=== PATIENT | female | born 1980 | race Caucasian/White ===

== ENCOUNTER 2019-05-28 08:43 | Inpatient (IN) | payer MEDICAID ==
[~2019-05-28 08:43] MED LIST: SUCCINYLCHOLINE CHLORIDE INJ 200 MG/10 ML VIAL ONE
[2019-05-28] MEDS ORDERED: OXYCODONE-ACETAMINOPHEN 5-325 MG TABLET PO ONE (09:53)
--- NOTE | 2019-05-28 09:56 | ER Document Report ---
ED Medical Screen (RME) - General Chief Complaint: Abscess Stated Complaint: BREAST PAIN Time Seen by Provider: 05/28/19 09:49 Mode of Arrival: Ambulatory Information source: Patient Notes: This 39-year-old female presents today with complaints of left breast abscess. Reports for the past week. Reports she has a history of a breast abscess. She went to see her provider on Tuesday who put her on clindamycin. She reports it is worse now red hot more swollen. Reports fever on and off. Patient also reports she broke up with her boyfriend 1 year ago and is asking about AIDS testing. Denies symptoms. Report that she figured since I was drawing blood I could check on everything. I encouraged her to follow-up with her primary care or health department. I have greeted and performed a rapid initial assessment of this patient. A comprehensive ED assessment and evaluation of the patient, analysis of test results and completion of the medical decision making process will be conducted by additional ED providers. Dictation of this chart was performed using voice recognition software; therefore, there may be some unintended grammatical errors. TRAVEL OUTSIDE OF THE [place] IN LAST 30 DAYS: No - Related Data Allergies/Adverse Reactions: sulfamethoxazole [From Septra] Allergy (Verified 05/28/19 08:44) trimethoprim [From Septra] Allergy (Verified 05/28/19 08:44) Physical Exam - Vital signs Vitals: Temp Pulse Resp BP Pulse Ox 98.3 F 86 16 115/62 96 05/28/19 08:48 05/28/19 08:48 05/28/19 08:48 05/28/19 08:48 05/28/19 08:48 Course - Vital Signs Vital signs: Temp Pulse Resp BP Pulse Ox 98.3 F 86 16 115/62 96 05/28/19 08:48 05/28/19 08:48 05/28/19 08:48 05/28/19 08:48 05/28/19 08:48
[2019-05-28 10:14] LABS: ABSOLUTE BASOPHILS # (AUTO) 0.1 10^3/uL (0.0-0.2); ABSOLUTE EOSINOPHILS # (AUTO) 0.4 10^3/uL (0.0-0.6); ABSOLUTE LYMPHOCYTES (AUTO) 2.2 10^3/uL (0.5-4.7); ABSOLUTE MONOCYTES (AUTO) 1.9 10^3/uL (0.1-1.4); ABSOLUTE NEUT (AUTO) 10.8 10^3/uL (1.7-8.2); EOSINOPHILS % (AUTO) 2.5 % (0-6); HEMATOCRIT 43.7 % (36.0-47.0); HEMOGLOBIN 14.7 g/dL (12.0-15.5); MEAN CORPUSCULAR HEMOGLOBIN 32.3 pg (27.0-33.4); MEAN CORPUSCULAR HGB CONC 33.7 g/dL (32.0-36.0); MEAN CORPUSCULAR VOLUME 96 fl (80-97); MONOCYTES % (AUTO) 12.4 % (3-13); PLATELET COUNT 193 10^3/uL (150-450); RED BLOOD COUNT 4.56 10^6/uL (3.72-5.28); RED CELL DISTRIBUTION WIDTH 13.2 % (11.5-14.0); SEGMENTED NEUTROPHILS % (AUTO) 70.1 % (42-78); TOTAL CELLS COUNTED % (AUTO) 100 %; WHITE BLOOD COUNT 15.4 10^3/uL (4.0-10.5)
[2019-05-28 10:15] LABS: APPEARANCE,URINE CLEAR; BILIRUBIN,URINE NEGATIVE (NEGATIVE); COLOR,URINE YELLOW; GLUCOSE, URINE NEGATIVE (NEGATIVE); KETONES,URINE NEGATIVE (NEGATIVE); LEUKOCYTE ESTERASE,URINE NEGATIVE (NEGATIVE); NITRITE,URINE NEGATIVE (NEGATIVE); PROTEIN,URINE NEGATIVE (NEGATIVE); URINE SPECIFIC GRAVITY 1.012; UROBILINOGEN,URINE NEGATIVE mg/dL (<2.0)
[2019-05-28 10:32] LABS: ALANINE AMINOTRANSFERASE 78 U/L (9-52); ALBUMIN 3.7 g/dL (3.5-5.0); ALKALINE PHOSPHATASE 194 U/L (38-126); ANION GAP 8 (5-19); ASPARTATE AMINO TRANSFERASE 45 U/L (14-36); BILIRUBIN,DIRECT 0.3 mg/dL (0.0-0.4); BILIRUBIN,TOTAL 0.3 mg/dL (0.2-1.3); BLOOD UREA NITROGEN 8 mg/dL (7-20); CALCIUM 9.2 mg/dL (8.4-10.2); CARBON DIOXIDE 27 mmol/L (22-30); CHLORIDE 102 mmol/L (98-107); GLUCOSE 100 mg/dL (75-110); POTASSIUM 4.4 mmol/L (3.6-5.0); SODIUM 137.1 mmol/L (137-145); TOTAL PROTEIN 7.1 g/dL (6.3-8.2)
--- NOTE | 2019-05-28 11:30 | RADIOLOGY REPORT (SQ) ---
EXAM DESCRIPTION: U/S BREAST UNILATERAL LIMITED COMPLETED DATE/TIME: 05/28/2019 11:08 am REASON FOR STUDY: LEFT BREAST ABSCESS COMPARISON: None TECHNIQUE: Static and Realtime grayscale interrogation of focal area(s) of concern in the left breas t(s) acquired. Selected color doppler/spectral images saved to PACS. LIMITATIONS: None. FINDINGS: Targeted ultrasound examination of the left breast at the patient identified site of pain and palpable abnormality reveals a subcutaneous heterogeneous collection measuring 5.2 x 6.8 x 4.0 cm at 7 o'clock face, 4 cm from the nipple. IMPRESSION: Targeted ultrasound examination of the left breast at the patient identified site of edis n and palpable abnormality reveals a subcutaneous heterogeneous collection measuring 5.2 x 6.8 x 4.0 cm at 7 o'clock face, 4 cm from the nipple. Given stated clinical presentation this is most concerni ng for abscess. [place] galactocele, hematoma, or seroma are differential considerations and the prese nce of infection cannot be evaluated by ultrasound. BIRAD: 2 Benign findings.. RECOMMENDATION: RECOMMENDED FOLLOW-UP: Follow-up as clinically indicated. COMMENT: The [employer] ([employer]) has developed recommendations for screening MRI of the breasts in certain patient populations, to be used in conjunction with mammography. Breast MRI s urveillance may be appropriate for women with more than 20% lifetime risk of developing breast cancer as determined by genetic testing, significant family history of the disease, or history of mantle r adiation for Hodgkins Disease. ACR Practice Guidelines 2008. TECHNICAL DOCUMENTATION: FINDING NUMBER: (1) ASSESSMENT: (1) JOB ID: [id number] [employer]- All Rights Reserved Reading location - IP/workstation name: [email or web address]
--- NOTE | 2019-05-28 12:05 | ER Document Report ---
ED Skin Rash/Insect Bite/Abscs - General Chief Complaint: Abscess Stated Complaint: BREAST PAIN Time Seen by Provider: 05/28/19 09:49 Mode of Arrival: Ambulatory Information source: Patient Notes: 39-year-old female with the listed past medical history here for left breast pain, swelling, redness for the last 5 days. She was seen and evaluated at her PCPs and placed on clindamycin 300 mg 4 times daily for the last 3 days however she states her symptoms have worsened. She endorses compliance with medication. no drainage, bleeding, or itching. Her last po intake was 8 AM this morning. S he states the redness, swelling, and pain have become worse. She denies any nipple changes, inversion, or discharge. She denies any right breast complaints. No trauma or injury. She states she did have a fever of a T max 103 F at home a couple days ago. She is not a diabetic. No other recent antibiotics or steroids. No breast surgeries. She states she had a negative mammogram about 1 year ago when she had a similar less severe infection however that resolved with antibiotic's and did not require incision and drainage. She states this is much worse. Last menstrual period was a week ago. Denies iv drug use. She has had a tubal ligation. Denies IV drug use. No other complaints at this time. TRAVEL OUTSIDE OF THE [place] IN LAST 30 DAYS: No - Related Data Allergies/Adverse Reactions: sulfamethoxazole [From Septra] Allergy (Verified 05/28/19 08:44) trimethoprim [From Julra] Allergy (Verified 05/28/19 08:44) Past Medical History - General Information source: Patient Last Menstrual Period: one week ago - Social History Smoking Status: Current Every Day Smoker Frequency of alcohol use: unknown Drug Abuse: None Family History: Other - unknown Patient has suicidal ideation: No Patient has homicidal ideation: No Renal/ Medical History: Denies: Hx Peritoneal Dialysis Psychiatric Medical History: Reports: Hx Bipolar Disorder Past Surgical History: Reports: Hx Section - x2, Hx Oral Surgery Review of Systems - Review of Systems -: Yes All other systems reviewed and negative - unless mentioned in the hpi Physical Exam - Vital signs Vitals: Temp Pulse Resp BP Pulse Ox 98.3 F 86 16 115/62 96 05/28/19 08:48 05/28/19 08:48 05/28/19 08:48 05/28/19 08:48 05/28/19 08:48 Notes: >>>> PHYSICAL_EXAM: GENERAL_APPEARANCE: well_nourished, alert, cooperative, no_acute_distress, mild_obvious_discomfort. pleasant, obese, young white female, smiling, speaking in full sentences, in no sign of pain or resp distress, VITALS: reviewed, see vital signs table. HEAD: no_swelling\tenderness on the head. normocephalic. atraumatic. no hallman signs. no raccoons eyes. EYES: PERRL, EOMI, conjunctiva_clear. NOSE: no_nasal_discharge. MOUTH: (-)decreased moisture. THROAT: no_tonsilar_inflammation, no_airway_obstruction. no_lymphadenopathy NECK: supple, no_neck_tenderness, full rom. full strength. no meningeal signs. BACK: no_back_tenderness. CHEST_WALL: no_chest_tenderness unless otherwise noted. no overlying skin changes unless otherwise noted LUNGS: no_wheezing, ctab (-)accessory muscle use, good air exchange bilateral. HEART: normal_rate, normal_rhythm, no_murmur, BREAST: Right breast manual exam deferred however no grossly visible overlying skin changes. Left breast has diffuse erythema from the superior areola distally across the entire breast and near circumferential around the breast. The medial aspect is more indurated and has calor and in the lateral aspect a few centimeters from the areola border is the most tender to palpate. exam some what limited secondary to pts tenderness. no grossly palpable fluctuance. She has no axillary lymphadenopathy. There is no orange peeling of the skin. There is no nipple inversion, drainage, bleeding, or discharge. Patient consented to exam. Exam without incident. ABDOMEN: normal_BS, soft, no_abd_tenderness, (-)guarding, (-)rebound, no distension or peritoneal signs. no cva ttp EXTREMITIES: strength 5/5 in all_extremities, good pulses in all_extremities, no_swelling\tenderness in the extremities, no_edema. full rom. normal gait. good pulses. brisk cap refill. 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 neg parker sign NEURO: motor and sensation intact, cranial nerves 2-12 intact, cerebellar fxn intact SKIN: warm, dry, good_color, no_rash unless otherwise noted. MENTAL_STATUS: speech_clear, oriented_X_3, normal_affect, responds_appropriately to questions. Course - Re-evaluation Re-evalutation: 05/28/19 14:38 Patient here for left breast cellulitis/abscess that is dramatically worsening over the last day or 2. She has had fevers of 103 at home. She has been on clindamycin for 3 days and her symptoms are worsening. Her labs are notable for a white count of 15,000, slightly elevated LFTs. bcx x 2 and lactic pending. A triage breast ultrasound was done that showed a 5 cm collection that could represent an abscess but was otherwise negative per radiology and reviewed by myself. Case discussed with ED attending, Dr. Teresa, who advised to call on- call surgery for IV antibiotics and incision and drainage. I then spoke with the on-call surgeon, Dr. Flores, who advised to give the patient IV fluids, IV Ancef, and he would come down and evaluate the patient and take the patient to the OR. Patient was kept n.p.o. She has pain controlled. Nontoxic. Vital signs stable. Patient understand and agrees with plan. Care transferred to surgery in stable condition. Please refer to their note for further details of the visit. On reexam, pt improved with tx listed. remained stable. nontoxic. pain controlled. she was kept NPO. case discussed with ER Attending, Dr. Teresa, who directed and agrees with plan of care Documentation achieved through voice recording which my lead to some occasional accidental typographical errors. Extensive efforts have been made to proof read documentation to make sure these are the least as possible. Category Date Time Status Adult Intake and Output [RC] Q8 Care 05/28/19 13:34 Active Doctor [DOCTOR/NURSE COMMUNICATION] [RC] NOW Care 05/28/19 13:36 Active Patient Status-Admission .Routine Care 05/28/19 13:34 Active U/S BREAST UNILATERAL LIMITED [US] Stat Exams 05/28/19 09:53 Completed BLOOD CULTURE [MC] Stat Lab 05/28/19 11:43 Received BLOOD CULTURE [MC] Stat Lab 05/28/19 13:12 Uncollected CBC WITH DIFF [HEME] Stat Lab 05/28/19 10:05 Completed COMPREHENSIVE METABOLIC PANEL [CHEM] Stat Lab 05/28/19 10:05 Completed HCG QUALITATIVE, URINE [URIN] Stat Lab 05/28/19 12:54 Uncollected HCG-QUAL, SERUM [CHEM] Stat Lab 05/28/19 10:05 Completed LACTIC ACID SEPSIS [CHEM] Stat Lab 05/28/19 13:01 Ordered URINALYSIS [URIN] Stat Lab 05/28/19 10:05 Completed Acetaminophen [Ofirmev Inj/Pf 1000 mg/100 ml Sdv] Med 05/28/19 18:00 Active 1,000 mg IV Q6 Bupivacaine HCl/Pf [Sensorcaine-Mpf 0.25% Inj 30 ml Sdv Med 05/28/19 13:42 Discontinued ] 30 ml .ROUTE .STK-MED ONE Cefazolin 1 gm/D5w RTU [Ancef RTU 1 gm/D5w 50 ml Premix Med 05/28/19 14:00 Active Bag] 1 gm in 50 ml IV Q8 Lidocaine HCl/Pf [Xylocaine 0.5% Inj-Pf (5 mg/ml) 50 ml Med 05/28/19 13:42 Discontinued Sdv] 50 ml .ROUTE .STK-MED ONE Morphine Sulfate [Morphine 10 mg/ml Inj] Med 05/28/19 13:00 Discontinued 4 mg IV NOW ONE Normal Saline 1000 ml [NaCl 0.9% 1000 ml IV Soln] 1,000 Med 05/28/19 13:00 Discontinued ml IV BOLUS Ondansetron HCl/Pf [Zofran Inj/Pf 4 mg/2 ml Sdv] Med 05/28/19 13:00 Discontinued 4 mg IV NOW ONE Ondansetron HCl/Pf [Zofran Inj/Pf 4 mg/2 ml Sdv] Med 05/28/19 13:35 Active 4 mg IV Q4HP PRN Oxycodone HCl/Acetaminophen [Percocet 5-325 mg Tablet] Med 05/28/19 09:53 Discontinued 1 tab PO NOW ONE Ringers Solution,Lactated [Lactated Ringers 1000 ml IV Med 05/28/19 13:36 Active Soln] 1,000 ml IV CONTINUOUS Mechanical Prophylaxis .ROUTINE Oth 05/28/19 13:45 Ordered Pharmacological Prophylaxis .ROUTINE Oth 05/28/19 13:45 Ordered Resuscitation Status Routine Ot 05/28/19 13:34 Ordered Vital Signs [RC] Q4H Oth 05/28/19 13:34 Active Weight [RC] Q6AM Oth 05/28/19 13:34 Active 05/28/19 14:45 - Vital Signs Vital signs: Temp Pulse Resp BP Pulse Ox 98.3 F 86 16 115/62 96 05/28/19 08:48 05/28/19 08:48 05/28/19 08:48 05/28/19 08:48 05/28/19 08:48 - Laboratory Result Diagrams: 05/28/19 10:05 05/28/19 10:05 Laboratory results interpreted by me: 05/28/19 05/28/19 10:05 10:05 WBC 15.4 H Absolute Neutrophils 10.8 H Absolute Monocytes 1.9 H Creatinine 0.45 L AST 45 H ALT 78 H Alkaline Phosphatase 194 H 05/28/19 14:46 Labs- All tests 24 hr 05/28/19 05/28/19 05/28/19 10:05 10:05 10:05 WBC 15.4 H RBC 4.56 Hgb 14.7 Hct 43.7 MCV 96 MCH 32.3 MCHC 33.7 RDW 13.2 Plt Count 193 Seg Neutrophils % 70.1 Lymphocytes % 14.0 Monocytes % 12.4 Eosinophils % 2.5 Basophils % 1.0 Absolute Neutrophils 10.8 H Absolute Lymphocytes 2.2 Absolute Monocytes 1.9 H Absolute Eosinophils 0.4 Absolute Basophils 0.1 Sodium 137.1 Potassium 4.4 Chloride 102 Carbon Dioxide 27 Anion Gap 8 BUN 8 Creatinine 0.45 L Est GFR ( Amer) > 60 Est GFR (Non-Af Amer) > 60 Glucose 100 Calcium 9.2 Total Bilirubin 0.3 Direct Bilirubin 0.3 Neonat Total Bilirubin Not Reportable Neonat Direct Bilirubin Not Reportable Neonat Indirect Bili Not Reportable AST 45 H ALT 78 H Alkaline Phosphatase 194 H Total Protein 7.1 Albumin 3.7 Serum HCG, Qual NEGATIVE Urine Color Urine Appearance Urine pH Ur Specific [place] Urine Protein Urine Glucose (UA) Urine Ketones Urine Blood Urine Nitrite Urine Bilirubin Urine Urobilinogen Ur Leukocyte Esterase Urine WBC (Auto) Squamous Epi Cells Auto Urine Mucus (Auto) Urine Ascorbic Acid 05/28/19 10:05 WBC RBC Hgb Hct MCV MCH MCHC RDW Plt Count Seg Neutrophils % Lymphocytes % Monocytes % Eosinophils % Basophils % Absolute Neutrophils Absolute Lymphocytes Absolute Monocytes Absolute Eosinophils Absolute Basophils Sodium Potassium Chloride Carbon Dioxide Anion Gap BUN Creatinine Est GFR ( Amer) Est GFR (Non-Af Amer) Glucose Calcium Total Bilirubin Direct Bilirubin Neonat Total Bilirubin Neonat Direct Bilirubin Neonat Indirect Bili AST ALT Alkaline Phosphatase Total Protein Albumin Serum HCG, Qual Urine Color YELLOW Urine Appearance CLEAR Urine pH 5.0 Ur Specific [place] 1.012 Urine Protein NEGATIVE Urine Glucose (UA) NEGATIVE Urine Ketones NEGATIVE Urine Blood NEGATIVE Urine Nitrite NEGATIVE Urine Bilirubin NEGATIVE Urine Urobilinogen NEGATIVE Ur Leukocyte Esterase NEGATIVE Urine WBC (Auto) 0 Squamous Epi Cells Auto <1 Urine Mucus (Auto) RARE Urine Ascorbic Acid NEGATIVE - Diagnostic Test Radiology reviewed: Image reviewed, Reports reviewed Radiology results interpreted by me: 05/28/19 14:46 Breast Ultrasound 05/28/19 09:53 IMPRESSION: Targeted ultrasound examination of the left breast at the patient identified site of pain and palpable abnormality reveals a subcutaneous heterogeneous collection measuring 5.2 x 6.8 x 4.0 cm at 7 o'clock face, 4 cm from the nipple. Given stated clinical presentation this is most concerning for abscess. [place] galactocele, hematoma, or seroma are differential considerations and the presence of infection cannot be evaluated by ultrasound. Discharge - Discharge Clinical Impression: Breast abscess of female, Transaminitis Leukocytosis Qualifiers: Leukocytosis type: unspecified Qualified Code(s): D72.829 - Elevated white blood cell count, unspecified Condition: Critical Disposition: ADMITTED INPATIENT Admitting Provider: Jackson Flores (Surgeon) Unit Admitted: Surgical Floor Instructions: Abscess ([facility])
[2019-05-28] MEDS ORDERED: NORMAL SALINE 1000 ML 1,000 ML IV ONE (13:00)
[2019-05-28] MEDS ORDERED: ONDANSETRON HCL INJ/PF 4 MG/2 ML SDV IV ONE (13:00)
[2019-05-28] MEDS ORDERED: MORPHINE SULFATE 10 MG/ML INJ IV ONE (13:00)
[2019-05-28] MEDS ORDERED: ONDANSETRON HCL INJ/PF 4 MG/2 ML SDV IV PRN ×2 (13:35→17:15)
[2019-05-28] MEDS ORDERED: BUPIVACAINE HCL 0.25 % INJ/PF (2.5 MG/1 ML) 30 ML VIAL ONE (13:42)
[2019-05-28] MEDS ORDERED: LIDOCAINE 0.5% INJ-PF (5 MG/ML) 50 ML SDV ONE (13:42)
--- NOTE | 2019-05-28 13:44 | PDOC H&P ---
History of Present Illness Admission Date/PCP: May 28, 2019 Patient complains of: Breast abscess History of Present Illness: MAGGY COLE is a 39 year old female Patient seen in the emergency department via ground rescue complaining of a several day history of left breast pain. Patient was managed on outpatient basis for cellulitis with p.o. antibiotics without improvement. She returns the emergency department with swelling, pain, left breast. Blood cell count was elevated 15,000. Ultrasound of the left breast obtained which revealed a 5 cm abscess. Surgery was consulted and patient was advised admission for operative decompression of the left breast abscess. Has a history of intermittent left breast and nipple swelling at the time of her disease. Patient has a long history of smoking. Past Medical History Past Medical History: Anxiety disorder, ADD age, smoking disorder, history of chronic pain management of the cervical spine; history of retinoblastoma right eye Psychiatric Medical History: Reports: Bipolar Disorder Past Surgical History Past Surgical History: History of section, laceration left leg repair, dental work, right eye enucleation with prosthesis Past Surgical History: Reports: Section - x2 Social History Smoking Status: Current Every Day Smoker Frequency of Alcohol Use: None Hx Recreational Drug Use: No Hx Prescription Drug Abuse: No Family History Family History: None Parental Family History Reviewed: Yes Children Family History Reviewed: Yes Sibling(s) Family History Reviewed.: Yes Medication/Allergy Allergies/Adverse Reactions: sulfamethoxazole [From Julra] Allergy (Verified 05/28/19 08:44) trimethoprim [From Julra] Allergy (Verified 05/28/19 08:44) Review of Systems Constitutional: PRESENT: as per HPI Eyes: PRESENT: other - Right prosthetic eye Ears: ABSENT: hearing changes Cardiovascular: ABSENT: chest pain, dyspnea on exertion, edema, orthropnea, palpitations Genitourinary: ABSENT: dysuria, hematuria Integumentary: PRESENT: as per HPI Neurological: ABSENT: abnormal gait, abnormal speech, confusion, dizziness, focal weakness, syncope Physical Exam Vital Signs: Temp Pulse Resp BP Pulse Ox 98.3 F 86 16 115/62 96 05/28/19 08:48 05/28/19 08:48 05/28/19 08:48 05/28/19 08:48 05/28/19 08:48 Intake & Output 05/27/19 05/28/19 05/29/19 06:59 06:59 06:59 Weight 77.9 kg General appearance: PRESENT: no acute distress Head exam: PRESENT: normocephalic Eye exam: PRESENT: other - Right prosthetic eye; slight lid lag on the left side Neck exam: PRESENT: full ROM Respiratory exam: PRESENT: rhonchi Cardiovascular exam: PRESENT: RRR Pulses: PRESENT: normal carotid pulses, normal radial pulses, normal femoral pulses GI/Abdominal exam: PRESENT: soft Rectal exam: PRESENT: deferred Extremities exam: PRESENT: full ROM Musculoskeletal exam: PRESENT: full ROM, other - Scar left lower extremity Neurological exam: PRESENT: oriented to person, oriented to place, oriented to time, oriented to situation Psychiatric exam: PRESENT: anxious Results Laboratory Results: 05/28/19 10:05 05/28/19 10:05 05/28/19 05/28/19 05/28/19 10:05 10:05 10:05 WBC 15.4 H RBC 4.56 Hgb 14.7 Hct 43.7 MCV 96 MCH 32.3 MCHC 33.7 RDW 13.2 Plt Count 193 Seg Neutrophils % 70.1 Lymphocytes % 14.0 Monocytes % 12.4 Eosinophils % 2.5 Basophils % 1.0 Absolute Neutrophils 10.8 H Absolute Lymphocytes 2.2 Absolute Monocytes 1.9 H Absolute Eosinophils 0.4 Absolute Basophils 0.1 Sodium 137.1 Potassium 4.4 Chloride 102 Carbon Dioxide 27 Anion Gap 8 BUN 8 Creatinine 0.45 L Est GFR ( Amer) > 60 Est GFR (Non-Af Amer) > 60 Glucose 100 Calcium 9.2 Total Bilirubin 0.3 AST 45 H ALT 78 H Alkaline Phosphatase 194 H Total Protein 7.1 Albumin 3.7 Serum HCG, Qual NEGATIVE Urine Color Urine Appearance Urine pH Ur Specific [place] Urine Protein Urine Glucose (UA) Urine Ketones Urine Blood Urine Nitrite Ur Leukocyte Esterase Urine WBC (Auto) 05/28/19 10:05 WBC RBC Hgb Hct MCV MCH MCHC RDW Plt Count Seg Neutrophils % Lymphocytes % Monocytes % Eosinophils % Basophils % Absolute Neutrophils Absolute Lymphocytes Absolute Monocytes Absolute Eosinophils Absolute Basophils Sodium Potassium Chloride Carbon Dioxide Anion Gap BUN Creatinine Est GFR ( Amer) Est GFR (Non-Af Amer) Glucose Calcium Total Bilirubin AST ALT Alkaline Phosphatase Total Protein Albumin Serum HCG, Qual Urine Color YELLOW Urine Appearance CLEAR Urine pH 5.0 Ur Specific [place] 1.012 Urine Protein NEGATIVE Urine Glucose (UA) NEGATIVE Urine Ketones NEGATIVE Urine Blood NEGATIVE Urine Nitrite NEGATIVE Ur Leukocyte Esterase NEGATIVE Urine WBC (Auto) 0 Impressions: Breast Ultrasound 05/28/19 09:53 IMPRESSION: Targeted ultrasound examination of the left breast at the patient identified site of pain and palpable abnormality reveals a subcutaneous he terogeneous collection measuring 5.2 x 6.8 x 4.0 cm at 7 o'clock face, 4 cm from the nipple. Given stated clinical presentation this is most concerning for abscess. [place] galactocele, hematoma, or seroma are differential considerations and the presence of infection cannot be evaluated by ultrasound. Assessment & Plan - Diagnosis (1) Breast abscess Is this a current diagnosis for this admission?: Yes Plan: Impression: Acute left breast abscess with widespread cellulitis, refractory to outpatient oral antibiotic therapy. Needs emergent drainage Recommendations: 1. Will admit to surgical service, keep n.p.o., IV fluids, intravenous antibiotics. We will take the patient to the operating room for operative drainage, possible packing possible drain placement. 2. Patient expressed understanding and agrees to proceed. (2) Smoking Is this a current diagnosis for this admission?: Yes (3) History of retinoblastoma Is this a current diagnosis for this admission?: Yes (4) H/O enucleation of right eyeball Is this a current diagnosis for this admission?: Yes (5) ADH disorder Is this a current diagnosis for this admission?: Yes - Time Time Spent: 50 to 70 Minutes Critical Time spent with patient: 15-24 minutes Medications reviewed and adjusted accordingly: Yes Anticipated discharge: Home - Inpatient Certification Based on my medical assessment, after consideration of the patient's comorbidities, presenting symptoms, or acuity I expect that the services needed warrant INPATIENT care.: Yes I certify that my determination is in accordance with my understanding of Medicare's requirements for reasonable and necessary INPATIENT services [42 CFR 412.3e].: Yes Medical Necessity: Need For IV Fluids, Need for Pain Control, Need for IV Antibiotics, Need for Surgery
[2019-05-28] MEDS ORDERED: CEFAZOLIN SODIUM 1.5 GM in DEXTROSE 5%-WATER 100 ML IV SCH (14:00)
[2019-05-28] MEDS: CEFAZOLIN 1 GM/D5W RTU 1 GM/50 ML RTUPB IV SCH ×2 (15:09→22:06)
[2019-05-28] MEDS ORDERED: FENTANYL CITRATE INJ/PF 100 MCG/2 ML AMPUL ONE (16:32)
[2019-05-28] MEDS ORDERED: PROPOFOL INJ 200 MG/20 ML VIAL IV ONE (16:32)
[2019-05-28] MEDS ORDERED: DEXAMETHASONE SOD PHOSPHATE INJ 4 MG/1 ML VIAL ONE (16:32)
[2019-05-28] MEDS ORDERED: KETOROLAC TROMETHAMINE 60 MG/2 ML SDV ONE (16:32)
[2019-05-28] MEDS ORDERED: ONDANSETRON HCL INJ/PF 4 MG/2 ML SDV ONE (16:32)
[2019-05-28] MEDS ORDERED: MIDAZOLAM 2 MG/2 ML INJ ONE (16:32)
[2019-05-28] MEDS ORDERED: MORPHINE SULFATE 10 MG/ML INJ IV PRN (17:15)
[2019-05-28] MEDS ORDERED: PROMETHAZINE HCL INJ 25 MG/1 ML VIAL IV PRN ×2 (17:15)
[2019-05-28] MEDS ORDERED: FENTANYL CITRATE INJ/PF 100 MCG/2 ML AMPUL IV PRN ×3 (17:15)
[2019-05-28] MEDS ORDERED: OXYCODONE-ACETAMINOPHEN 5-325 MG TABLET PO PRN ×2 (17:15)
[2019-05-28] MEDS ORDERED: DIPHENHYDRAMINE HCL 50 MG/ML VIAL IV PRN (17:15)
[2019-05-28] MEDS ORDERED: MEPERIDINE HCL/PF INJ 25 MG/1 ML DISP.SYRIN IV PRN (17:15)
--- NOTE | 2019-05-28 17:23 | Operative Report ---
Operative Report DATE OF SURGERY: 05/28/19 PREOPERATIVE DIAGNOSIS: Large left breast abscess POSTOPERATIVE DIAGNOSIS: same OPERATION: Excisional debridement of skin, subcutaneous tissue, breast tissue, and pus from the left breast, with packing SURGEON: HUYEN CAMARGO ANESTHESIA: GA TISSUE REMOVED OR ALTERED: Skin, subcutaneous tissue fat COMPLICATIONS: None ESTIMATED BLOOD LOSS: 15 cc INTRAOPERATIVE FINDINGS: See below PROCEDURE: The patient was seen in the preop holding area and taken the main operating room where general anesthesia was induced. Left arm was abducted, left breast prepped and draped in sterile fashion. Surgical plan and surgical timeout were conducted. The findings were significant for a massively swollen left breast, with the focal point of inflammation at the 8 o'clock position, but extending from the 6 to the 10 o'clock position. A periareolar 3-1/2 to 4 cm incision was made with a #10 blade from the 7:00 to 10 o'clock position of the left breast. We immediately got into a very large pocket of foul-smelling pus. This was sent for Gram stain, culture and sensitivity. A small ellipse of skin, chunks of necrotic fat, and some small chunks of breast tissue were all excisionally debrided with the pickups, and electrocautery. Approximately 5 g of tissue was removed from the breast. All subcutaneous, and breast pockets were broken up, with a moderate size cavity irrigated multiple times with saline solution. Small bleeders were cauterized as encountered. We felt the operation was complete. The breast cavity was packed with approximately a foot and a half of half-inch iodoform packing. Hemostasis was excellent. 4 x 4's applied. Patient tolerated procedure well, and taken to recovery in stable condition.
[2019-05-28] MEDS ORDERED: CEFAZOLIN 1 GM/D5W RTU 50 ML IV SCH (17:30)
[2019-05-28] MEDS: HYDROMORPHONE HCL INJ/PF 2 MG/ML AMPULE ONE ×2 (17:31→17:34)
[2019-05-28] MEDS: ACETAMINOPHEN INJ/PF 1000 MG/100 ML SDV IV SCH (19:47)
[2019-05-28] MEDS: KETOROLAC TROMETHAMINE INJ/PF 30 MG/1 ML SDV IV PRN (22:06)
[2019-05-29] MEDS: ACETAMINOPHEN INJ/PF 1000 MG/100 ML SDV IV SCH ×5 (00:45→23:00)
[2019-05-29] MEDS: DOCUSATE SODIUM 100 MG CAPSULE PO SCH ×3 (03:41→18:00)
[2019-05-29] MEDS: KETOROLAC TROMETHAMINE INJ/PF 30 MG/1 ML SDV IV PRN ×4 (04:08→22:58)
[2019-05-29] MEDS: CEFAZOLIN 1 GM/D5W RTU 1 GM/50 ML RTUPB IV SCH ×3 (06:32→21:19)
[2019-05-29] MEDS ORDERED: MORPHINE SULFATE 10 MG/ML INJ ONE (07:43)
[2019-05-29] MEDS: RINGERS SOLUTION,LACTATED 1,000 ML IV PRN (10:22)
[2019-05-29] MEDS ORDERED: OXYCODONE-ACETAMINOPHEN 5-325 MG TABLET ONE (11:04)
--- NOTE | 2019-05-29 11:50 | PDOC PROGRESS REPORT ---
Subjective Progress Note for:: 05/29/19 Subjective:: c/o left breast pain Reason For Visit: LEFT BREAST ABSCESS Physical Exam Vital Signs: Temp Pulse Resp BP Pulse Ox 97.6 F 56 L 16 113/68 96 05/29/19 07:25 05/29/19 07:25 05/29/19 07:25 05/29/19 07:25 05/29/19 07:25 Intake & Output 05/28/19 05/29/19 05/30/19 06:59 06:59 06:59 Intake Total 1400 Output Total 710 Balance 690 Weight 77.9 kg General appearance: PRESENT: mild distress Head exam: PRESENT: normocephalic Eye exam: PRESENT: EOMI Mouth exam: PRESENT: moist Neck exam: PRESENT: full ROM Respiratory exam: PRESENT: clear to auscultation gabriel Cardiovascular exam: PRESENT: RRR GI/Abdominal exam: PRESENT: soft Rectal exam: PRESENT: deferred Extremities exam: PRESENT: full ROM Musculoskeletal exam: PRESENT: full ROM Neurological exam: PRESENT: alert, awake, oriented to person Psychiatric exam: PRESENT: appropriate affect Skin exam: PRESENT: dry, other - left breast with surround celluliits firm with open wound with no obvious further purulent drainage. Results Laboratory Results: 05/28/19 10:05 05/28/19 10:05 Impressions: Breast Ultrasound 05/28/19 09:53 IMPRESSION: Targeted ultrasound examination of the left breast at the patient identified site of pain and palpable abnormality reveals a subcutaneous heterogeneous collection measuring 5.2 x 6.8 x 4.0 cm at 7 o'clock face, 4 cm from the nipple. Given stated clinical presentation this is most concerning for abscess. [place] galactocele, hematoma, or seroma are differential considerations and the presence of infection cannot be evaluated by ultrasound. Assessment & Plan - Plan Summary Plan Summary: pack removed and then loosely replaced with 2x2 saline soaked gauze cellulitis marked will cont dressing changes and iv abx.
[2019-05-29] MEDS: OXYCODONE-ACETAMINOPHEN 5-325 MG TABLET PO PRN (20:37)
[2019-05-30] MEDS: OXYCODONE-ACETAMINOPHEN 5-325 MG TABLET PO PRN ×2 (03:03→07:25)
[2019-05-30] MEDS: CEFAZOLIN 1 GM/D5W RTU 1 GM/50 ML RTUPB IV SCH (05:01)
[2019-05-30] MEDS: ACETAMINOPHEN INJ/PF 1000 MG/100 ML SDV IV SCH (05:01)
[2019-05-30] MEDS: RINGERS SOLUTION,LACTATED 1,000 ML IV PRN (07:27)
[2019-05-30] MEDS ORDERED: BENZOCAINE/MENTHOL SORE THROAT LOZENGE BUCCAL PRN (08:09)
[2019-05-30] MEDS: DOCUSATE SODIUM 100 MG CAPSULE PO SCH (09:20)
[2019-05-30] MEDS ORDERED: SERTRALINE HCL 50 MG TABLET PO SCH (10:00)
[2019-05-30] MEDS ORDERED: CLONIDINE HCL 0.1 MG TABLET PO SCH (10:00)
--- NOTE | 2019-05-30 11:04 | PDOC DISCHARGE SUMMARY ---
General - Admit/Disc Date/PCP Admission Date/Primary Care Provider: 05/28/19 15:17 Discharge Date: 05/30/19 - Discharge Diagnosis (1) Breast abscess Is this a current diagnosis for this admission?: Yes - Additional Information Resuscitation Status: Full Code Discharge Diet: As Tolerated Discharge Activity: Activity As Tolerated, Balance Activity w/Rest Home Medications: Clonidine HCl [Catapres 0.1 mg Tablet] 0.1 mg PO Q12 05/28/19 Dextroamphetamine/Amphetamine [Adderall 20 mg Tablet] 20 mg PO BID 05/28/19 Diazepam [Valium 5 mg Tablet] 5 mg PO BIDP PRN 05/28/19 Gabapentin 600 mg PO QHS 05/28/19 Sertraline HCl [Zoloft] 150 mg PO DAILY 05/28/19 Carbamazepine [Tegretol 200 Mg Tablet] 200 mg PO DAILY 05/30/19 Carbamazepine [Tegretol 200 Mg Tablet] 400 mg PO QHS 05/30/19 History of Present Illness History of Present Illness: MAGGY COLE is a 39 year old female with a left breast abscess. She was taken to the OR for I&D of the abscess. Hospital Course Hospital Course: After surgery she was taken to the floor in stable condition. Her erythema greatly improved with antibiotics. By 05/30/19 the pt was stable, her erythema was much improved, her pain was much improved, and she had reached maximal hospital benefit. At this time she is medically fit for discharge. Physical Exam Vital Signs: Temp Pulse Resp BP Pulse Ox 98.1 F 56 L 16 112/76 96 05/30/19 07:53 05/30/19 07:53 05/30/19 07:53 05/30/19 07:53 05/30/19 07:53 Intake & Output 05/29/19 05/30/19 05/31/19 06:59 06:59 06:59 Intake Total 1400 1150 Output Total 710 Balance 690 1150 Weight 77.9 kg Results Laboratory Results: 05/28/19 10:05 05/28/19 10:05 05/28/19 17:08 Breast - Left Gram Stain - Final Impressions: Breast Ultrasound 05/28/19 09:53 IMPRESSION: Targeted ultrasound examination of the left breast at the patient identified site of pain and palpable abnormality reveals a subcutaneous heterogeneous collection measuring 5.2 x 6.8 x 4.0 cm at 7 o'clock face, 4 cm from the nipple. Given stated clinical presentation this is most concerning for abscess. [place] galactocele, hematoma, or seroma are differential considerations and the presence of infection cannot be evaluated by ultrasound. Qualifiers - * PATIENT BEING DISCHARGED WITH ANY OF THE FOLLOWING DIAGNOSIS: No Acute Heart Failure - Is this a Heart Failure Patient?: No Plan Discharge Plan: discharge home. Diet: as tolerated. Activity: Nonstrenuous. Doxycycline 100 mg PO BID. Hydro 5/325 mg PO q6 hrs PRN pain. followup with [facility] in one week Time Spent: Less than 30 Minutes
[2019-05-30 11:10] VITALS: BP 115/62
[2019-05-31] MEDS ORDERED: SERTRALINE HCL 50 MG TABLET PO SCH (10:00)
== END 2019-05-30 11:53 | disposition home or self-care (01) | DRG 585 ==
LOC: ER 08:43 → EH 15:17 → 2N 18:45 → OBSVTOIN 05-29 10:45
PROVIDERS: ADMIT Surgery; ATTEND Surgery
PROC: 0HBU0ZZ Excision of Left Breast, Open Approach (ICD-10-PCS; principal; 2019-05-28 16:00)
DX: N61.1 Abscess of the breast and nipple (principal); D72.829 Elevated white blood cell count, unspecified; F31.9 Bipolar disorder, unspecified; F17.200 Nicotine dependence, unspecified, uncomplicated; F41.9 Anxiety disorder, unspecified; Z90.01 Acquired absence of eye; Z97.0 Presence of artificial eye; Z85.840 Personal history of malignant neoplasm of eye; Z88.2 Allergy status to sulfonamides
CPT/HCPCS: 36415; 400; 76642; 80053; 81001; 84703; 85025; 87040; 87070; 87075; 87077; 87205; 88305; 96374; 96375; 99284; G0378; J0131; J0330; J0690; J1100; J1170; J1885; J2250; J2270; J2405; J2704; J3010; J3490; J7030; J7120

== ENCOUNTER 2020-03-04 23:01 | Emergency (ER) | payer MEDICAID ==
[2020-03-04] MEDS ORDERED: LIDOCAINE 1%/EPINEPHRINE INJ 20 ML VIAL INJ ONE (23:50)
--- NOTE | 2020-03-04 23:51 | ER Document Report ---
ED Wound - General Chief Complaint: Laceration Stated Complaint: LEFT FOOT LACERATION Time Seen by Provider: 03/04/20 23:39 Primary Care Provider: NATHAN MCINTYRE MD [ACTIVE STAFF] - Follow up in 1 week Notes: Patient is a 39-year-old female that comes emergency department for chief complaint of accidental laceration to the top of her foot over the left fifth toe and extending up to the top of the foot. She states that she took out her knife, opened it, was struggling to close it again when she accidentally dropped it and it landed on her foot. She denies any other injuries. Tetanus is up-to-date within 3 years. She reports drinking 2 beers tonight, she is not on a blood thinner, she is not a diabetic. TRAVEL OUTSIDE OF THE [place] IN LAST 30 DAYS: No - Related Data Allergies/Adverse Reactions: sulfamethoxazole [From ] Allergy (Verified 03/04/20 23:13) trimethoprim [From ] Allergy (Verified 03/04/20 23:13) Home Medications: ZOLOFT. CLONODINE. CARBO. ADDERALL. GABAPENTIN Past Medical History - General Information source: Patient - Social History Smoking Status: Current Every Day Smoker Frequency of alcohol use: Social Drug Abuse: None Lives with: Family Family History: Other - unknown Patient has suicidal ideation: No Patient has homicidal ideation: No Renal/ Medical History: Denies: Hx Peritoneal Dialysis GI Medical History: Reports: Hx Ulcer - stomach, resolved Musculoskeletal Medical History: Reports Hx Arthritis - kness, neck (cervical stenosis) Psychiatric Medical History: Reports: Hx Anxiety, Hx Depression Past Surgical History: Reports: Hx Section - x2, Hx Oral Surgery - Immunizations Immunizations up to date: Yes Hx Diphtheria, Pertussis, Tetanus Vaccination: Yes - 2016 Review of Systems - Review of Systems Constitutional: No symptoms reported EENT: No symptoms reported Cardiovascular: No symptoms reported Respiratory: No symptoms reported Gastrointestinal: No symptoms reported Genitourinary: No symptoms reported Female Genitourinary: No symptoms reported Musculoskeletal: See HPI Skin: See HPI Hematologic/Lymphatic: No symptoms reported Neurological/Psychological: No symptoms reported Physical Exam - Vital signs Vitals: Temp Pulse Resp BP Pulse Ox 98.9 F 100 16 122/83 96 03/04/20 23:12 03/04/20 23:12 03/04/20 23:12 03/04/20 23:12 03/04/20 23:12 - Notes Notes: GENERAL: Alert, interacts well. No acute distress. HEAD: Normocephalic, atraumatic. EYES: Pupils equal, round, and reactive to light. Extraocular movements intact. ENT: Oral mucosa moist, tongue midline. Oropharynx unremarkable. Airway patent. LUNGS: Clear to auscultation bilaterally, no wheezes, rales, or rhonchi. No respiratory distress. Non-tender chest wall. HEART: Regular rate and rhythm. No murmur ABDOMEN: Soft, non-tender. Non-distended. EXTREMITIES: There is an approximately 7 cm wound that starts at the distal dorsal aspect of the left foot just behind the left toe, extends all along the side of the left toe and then down to the main part of the side of the dorsal foot. This causes a flap that can be reapproximated along the side of the toe back into place. The area is easily explored, patient has normal sensation, normal range of motion, and no significant bleeding. The nail has been avulsed but the nailbed is intact and unremarkable. Remaining lower extremity unremarkable. BACK: no cervical, thoracic, lumbar midline tenderness. No saddle anesthesia, normal distal neurovascular exam. Moves all extremities in full range of motion. NEUROLOGICAL: Alert and oriented x3. Normal speech. Cranial nerves II through XII grossly intact. Strength 5/5 in all extremities. PSYCH: Normal affect, normal mood. SKIN: Warm, dry, normal turgor. No rashes or lesions noted. Course - Re-evaluation Re-evalutation: Patient has an extensive wound which is a flap where she almost sheared off the entire side of her left fifth digit. However this is superficial with the flap, she still has sensation, range of motion, and there is no large vessel injury. I had to use lidocaine with epinephrine because of the extent of bleeding at the top of the foot, however afterwards patient in great anesthesia and the area was easily explored, cleaned very thoroughly with irrigation, and closed. Patient had a dirty foot when the injury happened from walking around barefoot, in addition to this on the x-ray there is a tiny cortical fracture at the head of the fifth metatarsal seen on one view. Patient will be placed on crutches, discussed wound care, placed on antibiotics, discussed importance of orthopedics follow-up and care. Discussed return precautions at length. Patient states appreciation and agreement with plan. - Vital Signs Vital signs: Temp Pulse Resp BP Pulse Ox 98.9 F 100 16 122/83 96 03/04/20 23:12 03/04/20 23:12 03/04/20 23:12 03/04/20 23:12 03/04/20 23:12 Procedures - Laceration/Wound Repair Left foot/fifth digit Wound length (cm): 7 Wound's Depth, Shape: Irregular, Flap, Stellate - Near the end of the toe there were fragmented portions of skin Laceration pre-procedure: Sterile PPE donned, Sterile drapes applied, Shur-Clens applied Anesthetic type: 1% Lidocaine w/epi Volume Anesthetic (mLs): 4 Wound explored: Clean, No foreign body removed Irrigated w/ Saline (mLs): 100 Suture Size/Type: 4:0, Ethilon Number of Sutures: 18 Layer Closure?: No Post-procedure wound care: Sterile dressing applied Post-procedure NV exam normal: Yes Complications: No Discharge - Discharge Clinical Impression: Laceration of left foot Qualifiers: Encounter type: initial encounter Qualified Code(s): S91.312A - Laceration without foreign body, left foot, initial encounter Toe laceration Qualifiers: Encounter type: initial encounter Toe: lesser toe Damage to nail status: without damage Foreign body presence: without foreign body Laterality: left Qualified Code(s): S91.115A - Laceration without foreign body of left lesser toe(s) without damage to nail, initial encounter Metatarsal fracture Qualifiers: Encounter type: initial encounter Metatarsal bone: fifth Fracture type: open Fracture alignment: nondisplaced Laterality: left Qualified Code(s): S92.355B - Nondisplaced fracture of fifth metatarsal bone, left foot, initial encounter for open fracture Condition: Stable Disposition: HOME, SELF-CARE Instructions: Oral Narcotic Medication ([facility]) Additional Instructions: There is a tiny fracture in the toe along with a significant wound (the fracture is at the head of the 5th metatarsal, a bone in your toe). Please use the crutches, take the Augmentin antibiotics (I recommend you take [id number] probiotics while taking this to avoid diarrhea), and elevate the foot for the first couple of days. Follow-up with the orthopedic referral (or orthopedic of your choice, call tomorrow to set up your appointment) for additional management of your injury. I recommend that you clean this daily and reapply topical antibiotics with a dressing. Clean the area gently with soap and water, dab dry, avoid soaking. Return if you worsen including developing severe swelling, redness, pain, discolored discharge, fever, or any other concerning symptoms. Prescriptions: Amoxicillin/Potassium Clav [Augmentin 875-125 Tablet] 1 tab PO BID 7 Days #14 tab Referrals: NATHAN MCINTYRE MD [ACTIVE STAFF] - Follow up in 1 week
--- NOTE | 2020-03-05 00:59 | RADIOLOGY REPORT (SQ) ---
EXAM DESCRIPTION: XR TOES 2 OR MORE VIEWS COMPLETED DATE/TME: 03/04/2020 23:50 CLINICAL HISTORY: 39 years Female, dropped knife on foot COMPARISON: None. Findings: Nondisplaced cortical fracture/defect at the lateral aspect of the left fifth metatarsal head seen on one view only. Swelling. No radiopaque foreign body. Bones, joints, and soft tissues of the LEFT XR TOES 2 OR MORE VIEWS appear otherwise unremarkable. IMPRESSION: 1. Nondisplaced cortical fracture/defect at the lateral aspect of the left fifth metatarsal head seen on one view only. 2. Swelling.
[2020-03-05] MEDS ORDERED: AMOXICILLIN TRIHYDRATE 500 MG CAPSULE PO ONE (01:02)
[2020-03-05] MEDS ORDERED: AMOXICILLIN TR/POT CLAVULANATE 500-125 MG TAB PO ONE (01:02)
[2020-03-05] MEDS ORDERED: HYDROCODONE/ACETAMINOPHEN 5-325 MG (6 TAB/ER DISP) PO PRN (01:02)
[2020-03-05 01:33] VITALS: BP 130/82
== END 2020-03-05 01:26 | disposition home or self-care (01) ==
LOC: ER 23:01
DX: S92.355B Nondisplaced fracture of fifth metatarsal bone, left foot, initial encounter for open fracture (principal); W20.8XXA Other cause of strike by thrown, projected or falling object, initial encounter; W26.0XXA Contact with knife, initial encounter; Y93.89 Activity, other specified; Y92.009 Unspecified place in unspecified non-institutional (private) residence as the place of occurrence of the external cause; F17.200 Nicotine dependence, unspecified, uncomplicated; F32.9 Major depressive disorder, single episode, unspecified; F41.9 Anxiety disorder, unspecified; Z79.899 Other long term (current) drug therapy; Z88.1 Allergy status to other antibiotic agents
CPT/HCPCS: 99283; 73660; 12002; J3490 ×2